=== PATIENT | male | born 1940 | race Hispanic/Latino ===

== ENCOUNTER 2024-01-30 06:49 | Day surgery (SDC) | payer OTHER, MEDICARE ==
[~2024-01-30] VITALS: Ht 160 cm; Wt 68.0 kg
[2024-01-30] VITALS (10 sets, daily range): BP systolic 122–170; BP diastolic 59–91; PULSE 56–66; RESP 10–16
[~2024-01-30 06:49] MED LIST: 0.9%NACL 1000ML 1,000 ML IV ONE; CARV12.511 PO; DAPA10TA PO; DUTA0.5C37 PO; FOLIC ACID PO; FURO20TA4 PO; GABA-529 PO; IRON PO; LINA5TAB PO; LOSA50TA64 PO; MEMA10TA55 PO; MIRA50TA PO; OMEP40CA21 PO; TAMS-1 PO; [UNRECOGNIZED DRUG - OTHER] SQ
[2024-01-30] MEDS ORDERED: PROPOFOL 10 MG/ML 20ML VIAL IV ONE (10:07)
== END 2024-01-30 11:40 | disposition home or self-care (01) ==
LOC: DAH 06:49 → ENDO 06:49
PROVIDERS: ATTEND Internal Medicine Gastroenterology
DX: K74.69 Other cirrhosis of liver (principal); K76.6 Portal hypertension; I85.10 Secondary esophageal varices without bleeding; R13.10 Dysphagia, unspecified; R14.2 Eructation; K29.50 Unspecified chronic gastritis without bleeding; D50.9 Iron deficiency anemia, unspecified; K59.00 Constipation, unspecified; R77.2 Abnormality of alphafetoprotein; R53.83 Other fatigue; R93.2 Abnormal findings on diagnostic imaging of liver and biliary tract; I10 Essential (primary) hypertension; E11.9 Type 2 diabetes mellitus without complications; Z98.890 Other specified postprocedural states; Z95.0 Presence of cardiac pacemaker; Z80.0 Family history of malignant neoplasm of digestive organs; Z86.010 Personal history of colon polyps; Z79.899 Other long term (current) drug therapy
CPT/HCPCS: 43244; 82948 ×2; 43239; J7030 ×2; J2704; A4620; A4215 ×2; A4223; A7002; A4222; A4221; A4663; A4606; J3490